=== PATIENT | female | born 1965 | race Caucasian/White ===

== ENCOUNTER 2024-03-13 09:24 | Outpatient (CLI) | payer MEDICAID | END 2024-03-13 23:59 | disposition home or self-care (01) | LOC: RAD 09:24 | PROVIDERS: ATTEND Nurse Practitioner Family | DX: K42.9 Umbilical hernia without obstruction or gangrene (principal); K43.9 Ventral hernia without obstruction or gangrene | CPT/HCPCS: 76705 ==